=== PATIENT | female | born 1945 | race Caucasian/White ===

== ENCOUNTER 2021-05-10 10:55 | Outpatient (CLI) | payer MEDICARE, OTHER ==
[2021-05-10 14:56] LABS: BILIRUBIN,URINE NEGATIVE (NEGATIVE); GLUCOSE, URINE (UA) NEGATIVE (NEGATIVE); KETONES,URINE (UA) NEGATIVE (NEGATIVE); LEUKOCYTE ESTERASE, URINE LARGE (NEGATIVE); NITRITE,URINE NEGATIVE (NEGATIVE); OCCULT BLOOD,URINE NEGATIVE (NEGATIVE); PROTEIN,URINE NEGATIVE (NEGATIVE); UROBILINOGEN,URINE 0.2 (NORMAL) E.U./dL (NORMAL)
[2021-05-10 15:02] LABS: CLARITY,URINE HAZY (CLEAR)
[2021-05-10 15:12] LABS: EPITHELIAL CELLS,UR FEW Transitional /HPF (<= Few); RBC,URINE 0-5 /HPF (0-5); SQUAMOUS EPITHELIAL CELL,UR MANY Squamous (<= Few); WBC,URINE >25 /HPF (0-5)
[2021-05-10 15:13] LABS: BACTERIA,URINE Moderate /HPF (None Seen)
== END 2021-05-10 23:59 | disposition home or self-care (01) ==
LOC: LAB.S 10:55
PROVIDERS: ATTEND Physician Assistant Medical
DX: R30.0 Dysuria (principal); N39.0 Urinary tract infection, site not specified
CPT/HCPCS: 81001; 87077; 87086

== ENCOUNTER 2023-10-20 12:14 | Outpatient (CLI) | payer MEDICARE, OTHER ==
--- NOTE | 2023-10-21 10:58 | Mammography Report ---
BILATERAL DIGITAL DIAGNOSTIC MAMMOGRAM 3D/2D: 10/20/2023 CLINICAL: Baseline exam. Palpable left breast lump. No prior exams were available for comparison. There are scattered areas of fibroglandular density in both breasts (category b / 25%-50% glandular t issue). There are benign vascular calcifications in both breasts. There is an irregular mass in the left breast at 5 o'clock middle depth. This correlates as palpated . There is architectural distortion associated with the mass. No other significant masses, calcifications, or other findings are seen in either breast. IMPRESSION: INCOMPLETE: NEEDS ADDITIONAL IMAGING EVALUATION The irregular mass in the left breast is indeterminate. A targeted ultrasound of the left breast is recommended and will be performed immediately following this exam. Based on the Tyrer Cuzick model (a risk assessment model) the patient's lifetime risk is 2.2% and her 10 year risk is 0.0%. According to the ACR, ACS, and NCCN guidelines, an annual breast MRI exam jean g with mammogram is recommended if the patient's lifetime risk is 20% or greater. This exam was interpreted at Station ID: [id number]. NOTE: For mammograms, a report in lay terms will be sent to the patient. Approximately 15% of breast malignancies will not be visualized mammographically. In the management of a palpable breast mass, a negative mammogram must not discourage biopsy of a clinically suspicious lesion. Electronically Signed By: Melany Adan M.D. lk/:10/20/2023 13:13:43 ACR BI-RADS Category 0: Incomplete 3340F PARENCHYMAL PATTERN: (A) - The breast(s) demonstrate(s) scattered fibroglandular densities. BI-RADS CATEGORY: (0) - 0 Ultrasound [id number] Immediate follow-up LATERALITY: (B)
--- NOTE | 2023-10-21 10:58 | Ultrasound Report ---
LIMITED ULTRASOUND OF LEFT BREAST AND AXILLA: 10/20/2023 CLINICAL: Palpable left breast lump. Comparison is made to exam dated: 10/20/2023 mammogram - [facility]. Color flow ultrasound of the left breast 3 o'clock, and axilla regions was performed on the areas of interest. Khoury scale images of the real-time examination were reviewed. There is a 2.7 cm x 2.7 cm x 1.7 cm irregular mass in the left breast at 3 o'clock anterior depth. T his correlates as palpated and with mammography findings. There is associated architectural distorti on. No left axillary adenopathy. IMPRESSION: SUSPICIOUS OF MALIGNANCY The 2.7 cm x 2.7 cm x 1.7 cm irregular mass in the left breast is at a high suspicion for malignancy. An ultrasound guided biopsy is recommended. This exam was interpreted at Station ID: [id number]. SUMMARY: This was discussed with the patient by the radiologist Dr. Emerson at the time of the exam. Electronically Signed By: Melany Adan M.D. lk/:10/20/2023 13:43:47 Ultrasound BI-RADS: 4c High suspicion of malignancy BI-RADS CATEGORY: (4c) - High Susp Biopsy follow-up [id number] Immediate follow-up LATERALITY: (B)
== END 2023-10-20 12:15 | disposition home or self-care (01) ==
LOC: DI 12:14
PROVIDERS: ATTEND Nurse Practitioner Family
DX: N63.25 Unspecified lump in the left breast, overlapping quadrants (principal); R92.323 Mammographic fibroglandular density, bilateral breasts

== ENCOUNTER 2023-11-03 09:14 | Outpatient (CLI) | payer MEDICARE, OTHER ==
[2023-11-03] MEDS ORDERED: LIDOCAINE-MPF 1% 5 ML VIAL ONE (09:54)
[2023-11-03] MEDS ORDERED: LIDOCAINE 1%-EPI 1:100000 20 ML MDV ONE (09:54)
[2023-11-03] MEDS: LIDOCAINE 1%-EPI 1:100000 20 ML MDV SUBQ ONE (11:47)
[2023-11-03] MEDS: LIDOCAINE-MPF 1% 5 ML VIAL TD ONE (11:48)
--- NOTE | 2023-11-04 09:48 | Mammography Report ---
UNILATERAL LEFT DIGITAL DIAGNOSTIC MAMMOGRAM - LEFT BREAST POST-PROCEDURE IMAGING FOR MARKER PLACEMEN CLINICAL: Post left breast ultrasound biopsy clip placement imaging. Comparison is made to exams dated: 10/20/2023 mammogram and 10/20/2023 ultrasound - [facility]. There are scattered areas of fibroglandular density in the left breast (category b / 25%-50% glandula r tissue). Post biopsy mammogram demonstrates hydromark biopsy clip in the expected location. IMPRESSION: POST PROCEDURE MAMMOGRAM FOR MARKER PLACEMENT Post biopsy mammogram demonstrates hydromark biopsy clip in the expected location. Please see [facility] ultrasound guided biopsy report for additional details and pathology. Based on the Tyrer Cuzick model (a risk assessment model) the patient's lifetime risk is 2.2% and her 10 year risk is 0.0%. According to the ACR, ACS, and NCCN guidelines, an annual breast MRI exam jean g with mammogram is recommended if the patient's lifetime risk is 20% or greater. This exam was interpreted at Station ID: [id number]. NOTE: For mammograms, a report in lay terms will be sent to the patient. Approximately 15% of breast malignancies will not be visualized mammographically. In the management of a palpable breast mass, a negative mammogram must not discourage biopsy of a clinically suspicious lesion. Electronically Signed By: Rama Sung M.D., Ph.D. eb/:11/03/2023 11:59:58 ACR BI-RADS Category Post-procedure mammogram for marker placement PARENCHYMAL PATTERN: (A) - The breast(s) demonstrate(s) scattered fibroglandular densities. BI-RADS CATEGORY: () - Unspecified - other recall n/a LATERALITY: (B)
--- NOTE | 2023-11-09 10:27 | Ultrasound Report ---
ULTRASOUND GUIDED BIOPSY LEFT BREAST WITH MARKING DEVICE INSERTED AND POST MAMMOGRAPHIC IMAGIN11/02 CLINICAL: Left breast mass. PATIENT CONSENT: Risks (minor bleeding, infection, vasovagal reaction and repeat procedure), benefits and alternatives were explained to the patient and written informed consent was obtained. Correlation is made to exams dated: 10/20/2023 ultrasound and 10/20/2023 mammogram - [facility]. An ultrasound guided biopsy using real-time ultrasound was performed for the mass located in the left breast at 3 o'clock, 3 cm from the nipple. The skin was prepped in the usual manner. Local anesthe tic was administered to the access site. The abnormality was approached from the lateral aspect. A 16 gauge biopsy needle was placed adjacent to the abnormality through an introducer device under ultr asound guidance. Once the needle was documented to be in the correct location, six specimens were ob tained using the Frageggquee biopsy device. The patient received additional local anesthetic during the procedure. A hydromark clip was inserted into the biopsy cavity. A sterile dressing was applied to the access site. Post procedure mammographic imaging demonstrates the biopsy clip at the targeted area. The specimens were sent to the laboratory for pathological analysis. The biopsy procedure was performed by Dr. Retana. IMPRESSION: ULTRASOUND GUIDED BIOPSY MALIGNANT Successful ultrasound guided biopsy of left breast mass at 3 o'clock, 3 cm from the nipple performed by Dr. Retana. 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 Findings are concordant with imaging. Recommend surgical and oncological consultation. This exam was interpreted at Station ID: [id number]. Rama Sung M.D., Ph.D. eb/:11/08/2023 16:41:03 BI-RADS CATEGORY: () - Unspecified - other recall n/a LATERALITY: (B)
== END 2023-11-03 09:15 | disposition home or self-care (01) ==
LOC: DI 09:14
PROVIDERS: ATTEND Nurse Practitioner Family
DX: C50.312 Malignant neoplasm of lower-inner quadrant of left female breast (principal); Z17.0 Estrogen receptor positive status [ER+]
CPT/HCPCS: 19083

== ENCOUNTER 2024-01-26 10:14 | Outpatient (CLI) | payer MEDICARE, OTHER | END 2024-01-26 10:15 | disposition short-term general hospital (02) | LOC: EMS 10:14 | DX: R07.89 Other chest pain (principal); R10.13 Epigastric pain; R11.2 Nausea with vomiting, unspecified | CPT/HCPCS: A0425; A0427 ==